=== PATIENT | female | born 1965 | race Two or more races ===

== ENCOUNTER 2019-02-17 19:06 | Emergency (ER) | payer SELFPAY ==
[~2019-02-17] VITALS: Ht 160 cm; Wt 56.0 kg
[2019-02-17] MEDS ORDERED: KETOROLAC 60MG/2ML VIAL IM ONE (23:45)
[2019-02-18 00:02] LABS: CLARITY URINE CLEAR (CLEAR); COLOR URINE YELLOW (YELLOW); KETONES URINE NEGATIVE (NEGATIVE); LEUKOCYTE ESTERASE URINE TRACE (NEGATIVE); NITRITE URINE NEGATIVE (NEGATIVE); OCCULT BLOOD URINE TRACE (NEGATIVE); PROTEIN URINE NEGATIVE (NEGATIVE); SPECIFIC GRAVITY URINE 1.014 (1.005-1.030); UROBILINOGEN URINE 0.2 E.U./dL (0.2-1.0)
[2019-02-18 01:08] VITALS: BP 120/68
== END 2019-02-18 01:10 | disposition home or self-care (01) ==
LOC: ER 19:06
DX: N12 Tubulo-interstitial nephritis, not specified as acute or chronic (principal); M54.5 Low back pain; Z98.51 Tubal ligation status
CPT/HCPCS: 81003; 96372; 99283; J1885